=== PATIENT | female | born 1975 | race Caucasian/White ===

== ENCOUNTER 2016-05-01 08:06 | Emergency (ER) | payer OTHER ==
[~2016-05-01] VITALS: Ht 154.9 cm; Wt 105.0 kg
[~2016-05-01 08:06] MED LIST: [UNRECOGNIZED DRUG - OTHER]
[2016-05-01] MEDS ORDERED: IBUPROFEN 600MG TABLET PO ONE (09:00)
[2016-05-01] MEDS ORDERED: ACETAMINOPHEN 500MG TABLET PO ONE (09:00)
[2016-05-01] MEDS ORDERED: PENICILLIN G BENZATHINE 1,200,000 UNITS/2ML SYR IM ONE (09:00)
[2016-05-01] MEDS ORDERED: VISCOUS LIDOCAINE 2% 15 ML UDC MM PRN (09:00)
[2016-05-01 09:42] VITALS: BP 132/81
== END 2016-05-01 09:48 | disposition home or self-care (01) ==
LOC: ER 08:36
DX: J02.9 Acute pharyngitis, unspecified (principal); I10 Essential (primary) hypertension; E03.9 Hypothyroidism, unspecified; F17.210 Nicotine dependence, cigarettes, uncomplicated; Z90.49 Acquired absence of other specified parts of digestive tract
CPT/HCPCS: 96372; 99283; J0561

== ENCOUNTER 2016-07-11 19:48 | Emergency (ER) | payer OTHER ==
[~2016-07-11] VITALS: Ht 157.5 cm; Wt 100.0 kg
[2016-07-11 23:30] VITALS: BP 112/76
[2016-07-11] MEDS ORDERED: LIDOCAINE HCL 1% 20ML VIAL (Pyxis) INJ MC ONE (23:30)
[2016-07-11] MEDS ORDERED: BACITRACIN ZINC OINT UDPKT TOP ONE (23:30)
[2016-07-11] MEDS ORDERED: TETANUS, DIPHTHERIA, PERTUSSIS VAC/PF 0.5ML (>7YR OLD) IM ONE (23:30)
[2016-07-11] MEDS ORDERED: HYDROCODONE/ACETAMINOPHEN 5/325MG TABLET PO ONE (23:30)
== END 2016-07-12 02:01 | disposition home or self-care (01) ==
LOC: ER 19:48
DX: L02.213 Cutaneous abscess of chest wall (principal); I10 Essential (primary) hypertension; E05.90 Thyrotoxicosis, unspecified without thyrotoxic crisis or storm; F17.200 Nicotine dependence, unspecified, uncomplicated
CPT/HCPCS: 10060; 90471; 90715; 99283; J3490; X7700; Z7610

== ENCOUNTER 2016-09-26 19:11 | Emergency (ER) | payer OTHER ==
[~2016-09-26] VITALS: Ht 157.5 cm; Wt 89.0 kg
[2016-09-27] MEDS ORDERED: DIAZEPAM 5 MG TABLET PO ONE
[2016-09-27] MEDS ORDERED: KETOROLAC 60MG/2ML VIAL IM ONE
[2016-09-27 00:57] LABS: CLARITY URINE CLOUDY (CLEAR); COLOR URINE YELLOW (YELLOW); GLUCOSE URINE NEGATIVE (NEGATIVE); KETONES URINE NEGATIVE (NEGATIVE); LEUKOCYTE ESTERASE URINE NEGATIVE (NEGATIVE); NITRITE URINE NEGATIVE (NEGATIVE); OCCULT BLOOD URINE TRACE (NEGATIVE); PROTEIN URINE NEGATIVE (NEGATIVE)
[2016-09-27 02:01] VITALS: BP 138/87
== END 2016-09-27 03:00 | disposition home or self-care (01) ==
LOC: ER 09-27 02:55
DX: M54.5 Low back pain (principal); I10 Essential (primary) hypertension; E05.90 Thyrotoxicosis, unspecified without thyrotoxic crisis or storm; Z98.51 Tubal ligation status
CPT/HCPCS: 81001; 96372; 99283; J1885

== ENCOUNTER 2017-01-17 11:39 | Emergency (ER) | payer OTHER ==
[~2017-01-17] VITALS: Ht 154.9 cm; Wt 100.0 kg
[2017-01-17 13:55] VITALS: BP 128/73
[2017-01-17] MEDS ORDERED: KETOROLAC 60MG/2ML VIAL IM ONE (14:00)
== END 2017-01-17 16:14 | disposition home or self-care (01) ==
LOC: ER 11:39
DX: M79.651 Pain in right thigh (principal); I10 Essential (primary) hypertension; E05.90 Thyrotoxicosis, unspecified without thyrotoxic crisis or storm; F17.210 Nicotine dependence, cigarettes, uncomplicated; Z98.890 Other specified postprocedural states
CPT/HCPCS: 93971; 96372; 99284; J1885

== ENCOUNTER 2018-09-04 17:54 | Emergency (ER) | payer OTHER ==
[~2018-09-04] VITALS: Ht 154.9 cm; Wt 104.0 kg
[2018-09-04] MEDS ORDERED: IBUPROFEN 800MG TABLET PO ONE (18:15)
[2018-09-04 18:16] VITALS: BP 133/100
== END 2018-09-04 18:57 | disposition home or self-care (01) ==
LOC: ER 17:54
DX: H66.91 Otitis media, unspecified, right ear (principal); I10 Essential (primary) hypertension; E03.9 Hypothyroidism, unspecified; Z87.42 Personal history of other diseases of the female genital tract; Z90.49 Acquired absence of other specified parts of digestive tract; Z79.899 Other long term (current) drug therapy
CPT/HCPCS: 99283

== ENCOUNTER 2019-01-09 00:59 | Emergency (ER) | payer OTHER ==
[~2019-01-09] VITALS: Ht 157.5 cm; Wt 100.0 kg
[2019-01-09 01:23] VITALS: BP 139/83
[2019-01-09] MEDS ORDERED: KETOROLAC 30MG/ML VIAL IM ONE (02:45)
== END 2019-01-09 03:18 | disposition home or self-care (01) ==
LOC: ER 01:45
DX: M25.532 Pain in left wrist (principal); M79.642 Pain in left hand; I10 Essential (primary) hypertension
CPT/HCPCS: 29125; 96372; 99283; J1885

== ENCOUNTER 2020-12-10 20:06 | Emergency (ER) | payer OTHER ==
[~2020-12-10] VITALS: Ht 154.9 cm; Wt 105.0 kg
[2020-12-10] MEDS: KETOROLAC 60MG/2ML VIAL IM ONE (21:00)
[2020-12-10] MEDS: DIAZEPAM 5 MG TABLET PO ONE (21:00)
[2020-12-10 22:33] LABS: CLARITY URINE CLEAR (CLEAR); COLOR URINE YELLOW (YELLOW); KETONES URINE TRACE (NEGATIVE); LEUKOCYTE ESTERASE URINE NEGATIVE (NEGATIVE); NITRITE URINE NEGATIVE (NEGATIVE); OCCULT BLOOD URINE TRACE (NEGATIVE); PH URINE 5.5 (4.5-8.0); PROTEIN URINE NEGATIVE (NEGATIVE); UROBILINOGEN URINE 0.2 E.U./dL (0.2-1.0)
[2020-12-10 22:49] VITALS: BP 138/76
[2020-12-10] MEDS: ONDANSETRON 4MG ODT PO ONE (23:45)
[2020-12-10] MEDS: HYDROCODONE/ACETAMINOPHEN 5/325MG TABLET PO ONE (23:45)
[2020-12-10] MEDS ORDERED: METH-773 MT (23:47)
[2020-12-10] MEDS ORDERED: TRAM50TA3 MT (23:47)
== END 2020-12-11 01:06 | disposition home or self-care (01) ==
LOC: ER 20:23
DX: M54.50 Low back pain, unspecified (principal); I10 Essential (primary) hypertension; Z90.49 Acquired absence of other specified parts of digestive tract; Z86.39 Personal history of other endocrine, nutritional and metabolic disease
CPT/HCPCS: 72070; 72100; 81003; 81025; 96372; 99284; J1885; Q0162

== ENCOUNTER 2021-10-05 23:25 | Emergency (ER) | payer MEDICAID, OTHER ==
[~2021-10-05] VITALS: Ht 154.9 cm; Wt 104.4 kg
[~2021-10-05 23:25] MED LIST changes: +METH-773 MT; +TRAM50TA3 MT
[2021-10-05 23:33] VITALS: BP 110/72
[2021-10-06] MEDS ORDERED: KETOROLAC 60MG/2ML VIAL IM ONE (01:30)
[2021-10-06] MEDS: LIDOCAINE 5% PATCH TOP SCH ×3 (01:30→03:11)
[2021-10-06] MEDS ORDERED: NAPR-681 MT (03:29)
[2021-10-06] MEDS ORDERED: LIDO1ADH23 TP (03:29)
== END 2021-10-06 03:50 | disposition home or self-care (01) ==
LOC: ER 23:40
DX: M79.605 Pain in left leg (principal)
CPT/HCPCS: 96372; 99283; J1885

== ENCOUNTER 2024-02-26 19:11 | Emergency (ER) | payer OTHER ==
[~2024-02-26] VITALS: Ht 167.6 cm; Wt 91.0 kg
[~2024-02-26 19:11] MED LIST changes: +LIDO1ADH23 TP; +NAPR-681 MT; +SODIUM CHLORIDE 3% FOR INH 4ML NEB INH NR
[2024-02-26] MEDS: METHYLPREDNISOLONE SOD SUCC 125MG/2ML (ACT-O-VIAL) IV STA (19:17)
[2024-02-26] MEDS ORDERED: ALBUTEROL (0.083%) 2.5MG/3ML NEB HHN STA (19:17)
[2024-02-26] MEDS ORDERED: IPRATROPIUM BROMIDE (0.02%) 0.5MG/2.5ML NEB HHN STA (19:17)
[2024-02-26] MEDS: VANCOMYCIN 1G PREMIX 200 ML IV ONE (19:30)
[2024-02-26] MEDS: MAGNESIUM 2 G PREMIX 50 ML IV ONE (19:30)
[2024-02-26] MEDS: PIPERACILLIN/TAZO 3.375G/50ML 50 ML IV ONE (19:30)
[2024-02-26] MEDS: SODIUM CHLORIDE 0.9% (SEPSIS BOLUS) IV ONE (19:30)
[2024-02-26 20:23] LABS: BASOPHILS % 0.2 % (0.0-2.0); HEMATOCRIT. 25.7 % (36.0-48.0); HEMOGLOBIN. 8.6 g/dL (12.0-16.0); LYMPHOCYTES % 12.2 % (20.0-50.0); MEAN CORPUSCULAR HEMOGLOBIN 30.8 pg (28.0-32.0); MEAN CORPUSCULAR HGB CONC 33.2 g/dL (31.0-37.0); MEAN CORPUSCULAR VOLUME 92.7 fL (81.0-99.0); MEAN PLATELET VOLUME 8.4 fl (7.4-10.4); MONOCYTES % 7.3 % (2.0-8.0); NEUTROPHILS % 80.3 % (40.0-76.0); PLATELET 137 x1000/uL (130-400); RED BLOOD CELL COUNT 2.78 mill/uL (4.2-5.4); RED CELL DISTRIBUTION WIDTH 14.4 % (11.6-14.6); WHITE BLOOD COUNT 10.8 x1000/uL (4.5-11.0)
[2024-02-26 20:31] LABS: INR 1.1; PROTHROMBIN TIME 12.5 sec (9.6-11.0)
[2024-02-26 20:39] LABS: CHLORIDE 100 mEq/L (98-107); POTASSIUM 4.3 mEq/L (3.5-5.1); SODIUM 133 mEq/L (136-145)
[2024-02-26 20:40] LABS: CARBON DIOXIDE 21 mEq/L (21-32)
[2024-02-26 20:45] LABS: CREATININE 1.4 mg/dL (0.6-1.0); GLUCOSE 185 mg/dL (70-105); UREA NITROGEN BLOOD 20 mg/dL (9-23)
[2024-02-26 20:47] LABS: ALANINE AMINOTRANSFERASE 33 IU/L (10-49); ALBUMIN 4.1 g/dL (3.2-4.8); ASPARTATE AMINOTRANSFERASE 65 IU/L (<34); BILIRUBIN DIRECT 0.3 mg/dL (<=3.0); BILIRUBIN TOTAL 0.9 mg/dL (0.1-1.0)
[2024-02-26 20:55] LABS: LACTIC ACID 5.4 mmol/L (0.4-2.0); TROPONIN I HIGH SENSITIVITY 318 ng/L (3.0-34)
[2024-02-26] MEDS: ETOMIDATE 2MG/ML 10ML VIAL IV ONE (21:11)
[2024-02-26] MEDS: VECURONIUM BROMIDE 10 MG/VIAL IV ONE (21:11)
[2024-02-26] MEDS: MIDAZOLAM 100MG/100ML PMX 100 ML IV STA (21:22)
[2024-02-26] MEDS ORDERED: FENTANYL 2500MCG/250ML PMX 250 ML IV ONE (21:30)
[2024-02-26 22:20] VITALS: O2SAT 80; O2SAT 91
[2024-02-26] MEDS: MIDAZOLAM 100MG/100ML PMX 100 ML IV PRN (22:20)
[2024-02-26] MEDS: FENTANYL 2500MCG/250ML PMX 250 ML IV PRN (22:20)
[2024-02-26] MEDS ORDERED: AZITHROMYCIN 500MG/250ML 250 ML IV SCH (22:30)
[2024-02-26 22:40] VITALS: PULSE 136; RESP 14; O2SAT 89
[2024-02-26] MEDS ORDERED: FENTANYL CITRATE/PF 1,000 MCG in DEXT 5% WATER 80 ML IV PRN (22:45)
[2024-02-26] MEDS ORDERED: GUAIFENESIN 600MG ER TABLET PO PRN (22:45)
[2024-02-26] MEDS ORDERED: IPRATROPIUM/ALBUTEROL 0.5-3(2.5)MG/3ML NEB HHN ONE (22:45)
[2024-02-26] MEDS ORDERED: ONDANSETRON HCL 4MG/2ML INJ IV PRN (23:00)
[2024-02-26] MEDS ORDERED: HEPARIN 60 UNITS/KG BOLUS IV SCH (23:30)
[2024-02-26] MEDS ORDERED: HEPARIN BOLUS PRN aPTT 30-44 IV ×2 (23:30→23:39)
[2024-02-26] MEDS ORDERED: HEPARIN 25,000 UNITS PREMIX 250 ML IV SCH ×2 (23:30)
[2024-02-26] MEDS ORDERED: SODIUM CHLORIDE 0.9% 1,000 ML IV SCH (23:30)
[2024-02-26] MEDS ORDERED: HEPARIN BOLUS PRN aPTT <30 IV ×2 (23:30→23:35)
[2024-02-26] MEDS: CEFTRIAXONE 1GM/50ML 50 ML IV SCH (23:31)
[2024-02-26] MEDS: IPRATROPIUM/ALBUTEROL 0.5-3(2.5)MG/3ML NEB HHN NR (23:39)
[2024-02-26] MEDS ORDERED: HEPARIN 60 UNITS/KG BOLUS IV NR (23:45)
[2024-02-26 23:51] LABS: VITAMIN B12 SERUM 1344 pg/mL (211-911)
[2024-02-27] LABS: BG BASE EXCESS -19.2 mmol/L (-2.0-3.0); BG CARBOXYHEMOGLOBIN 0.2 % (0.5-1.5); BG DEOXYHEMOGLOBIN 13.1 % (0.0-5.0); BG FRACTION INSPIRED OXYGEN 80; BG HCO3 ACT 12.7 mmol/L (21.0-28.0); BG METHEMOGLOBIN 0.3 % (0.5-1.5); BG OXYGEN SATURATION 86.8 % (94.0-98.0); BG OXYHEMOGLOBIN 86.4 % (94.0-98.0); BG PCO2 55.5 mmHg (32.0-45.0); BG PH 6.976 (7.350-7.450); BG PO2 80.2 mmHg (83.0-108.0); BG SAMPLE SITE RIGHT RADIAL; BG TOTAL HEMOGLOBIN 13.7 g/dL (12.0-16.0); BG VENT MODE VENT - AC
[2024-02-27] MEDS ORDERED: METHYLPREDNISOLONE SOD SUCC 40MG/ML (ACT-O-VIAL) IV SCH
[2024-02-27] MEDS ORDERED: SODIUM BICARBONATE 100 MEQ in DEXTROSE 5% WATER 900 ML IV SCH (00:15)
[2024-02-27] MEDS ORDERED: NOREPINEPHRINE 8MG/250ML PMX 250 ML IV PRN (00:45)
[2024-02-27] MEDS ORDERED: PHENYLEPHRINE 50MG/250ML PMX 250 ML IV PRN ×2 (00:45→01:00)
[2024-02-27] MEDS ORDERED: VASOPRESSIN 20 UNIT in SODIUM CHLORIDE 0.9% 99 ML IV PRN ×2 (00:45→01:00)
[2024-02-27] MEDS ORDERED: IPRATROPIUM/ALBUTEROL 0.5-3(2.5)MG/3ML NEB HHN PRN (01:00)
[2024-02-27] MEDS ORDERED: ONDANSETRON HCL 4MG/2ML INJ IV PRN (01:00)
[2024-02-27] MEDS ORDERED: ACETAMINOPHEN 325MG TABLET PO PRN (01:00)
[2024-02-27] MEDS ORDERED: DEXTROSE 50% WATER 50ML SYRINGE IV PRN (01:00)
[2024-02-27] MEDS: SODIUM CHLORIDE 0.9% 1,000 ML IV ONE (01:04)
[2024-02-27] MEDS: SODIUM BICARBONATE 8.4% 50MEQ/50ML SYR IV NR (01:04)
[2024-02-27] MEDS ORDERED: LEVO137T2 (01:14)
[2024-02-27 01:21] LABS: BG BASE EXCESS -12.5 mmol/L (-2.0-3.0); BG CARBOXYHEMOGLOBIN 0.5 % (0.5-1.5); BG DEOXYHEMOGLOBIN 57.8 % (0.0-5.0); BG FRACTION INSPIRED OXYGEN 100; BG METHEMOGLOBIN 0.3 % (0.5-1.5); BG OXYGEN SATURATION 41.7 % (94.0-98.0); BG OXYHEMOGLOBIN 41.4 % (94.0-98.0); BG PH 6.994 (7.350-7.450); BG PO2 35.9 mmHg (83.0-108.0); BG SAMPLE SITE RIGHT RADIAL; BG TOTAL HEMOGLOBIN 12.4 g/dL (12.0-16.0); BG VENT MODE VENT - AC
[2024-02-27] MEDS ORDERED: LEVOTHYROXINE SODIUM 137MCG TABLET PO NR (01:30)
[2024-02-27] MEDS ORDERED: DEXT 5%/0.9% NACL 1,000 ML IV SCH (01:30)
[2024-02-27] MEDS: EPINEPHRINE 10 MG in SODIUM CHLORIDE 0.9% 250 ML IV PRN (02:59)
[2024-02-27 03:22] VITALS: BP 157/87; PULSE 115; RESP 17; TEMP 38.11416; O2SAT 91
[2024-02-27] MEDS ORDERED: LACTATED RINGERS 1,000 ML IV SCH (04:00)
[2024-02-27] MEDS ORDERED: INSULIN LISPRO 100 UNITS/ML SUBCUT SCH (08:20)
[2024-02-27] MEDS ORDERED: ENOXAPARIN 30MG/0.3ML SYR SUBCUT SCH (09:00)
[2024-02-27] MEDS ORDERED: FAMOTIDINE 20MG/2ML VIAL IV SCH (09:00)
[2024-02-27] MEDS ORDERED: BLOOD SUGAR DIAGNOSTIC STRIP TEST SCH (09:00)
[2024-02-27] MEDS ORDERED: CEFTRIAXONE 1GM/50ML 50 ML IV SCH (20:00)
[2024-02-27] MEDS ORDERED: AZITHROMYCIN 500MG/250ML 250 ML IV SCH (21:00)
== END 2024-02-27 13:36 ==
LOC: ER 19:11 → CANBEDREQ 02-27 07:10 → ER 02-27 13:36
DX: A41.9 Sepsis, unspecified organism (principal); R65.21 Severe sepsis with septic shock; J96.01 Acute respiratory failure with hypoxia; J45.901 Unspecified asthma with (acute) exacerbation; J18.9 Pneumonia, unspecified organism; R79.89 Other specified abnormal findings of blood chemistry; E11.9 Type 2 diabetes mellitus without complications; I10 Essential (primary) hypertension; I46.9 Cardiac arrest, cause unspecified; Z79.1 Long term (current) use of non-steroidal anti-inflammatories (NSAID); Z98.51 Tubal ligation status; Z87.891 Personal history of nicotine dependence; Z68.32 Body mass index [BMI] 32.0-32.9, adult; Z79.890 Hormone replacement therapy; Z98.890 Other specified postprocedural states; Z79.899 Other long term (current) drug therapy
CPT/HCPCS: 80076; 80048; 82607; 82746; 83880; 83605; 83735; 84100; 85025; 85610; 85730; 87040; 84484; 36415; 84145; 71045; 76604; 82805 ×2; 82375 ×2; 31500; 93005; 96367; 96368; 96365; 96366; 96375; 99291; 36600 ×2; 82962; 93970; 36556; 92950; 96361; J0456; J0696; J3475; J2919; J2543; J3370; Z7610 ×5; J7030; J1644 ×2; J3490 ×4; J7070; J7050; A4663; J2250; J3010